=== PATIENT | female | born 1950 | race African-American/Black ===

== ENCOUNTER 2020-04-19 14:28 | Emergency (ER) | payer MEDICARE ==
--- NOTE | 2020-04-19 18:33 | ER Document Report ---
ED General - General Chief Complaint: Urinary Problem Stated Complaint: URINARY ISSUES Time Seen by Provider: 04/19/20 16:10 Primary Care Provider: JARAD MCCLENDON PA-C [Primary Care Provider] - Follow up as needed - HPI Notes: Patient is a 69-year-old female with a history of advanced dementia, recent stroke, who presents to the ED for evaluation after removing her Moore traumatically. The patient has severe dementia. She was sent home from [facility] yesterday with a Moore catheter in place. This morning the patient ripped out her own Moore catheter. She had nearly 2 L of urine in her Moore bag already. Patient's son is unsure as to whether or not she is urinated since then. Home health nurse recommended that she be seen in the ED for further evaluation. The patient can offer no meaningful history. Evidently the patient had another recent stroke, she has chronic kidney disease. She has been given medications, taking them as prescribed. - Related Data Allergies/Adverse Reactions: No Known Allergies Allergy (Unverified 04/19/20 14:37) Home Medications: Amiodarone, Eliquis, tamsulosin, furosemide, Lorazepam, albuterol, quetiapine Past Medical History - General Information source: Relative, Emergency Med Personnel - Social History Smoking Status: Never Smoker Family History: Reviewed & Not Pertinent - Past Medical History Cardiac Medical History: Reports: Hx Atrial Fibrillation Neurological Medical History: Reports: Hx Cerebrovascular Accident Psychiatric Medical History: Reports: Hx Dementia Review of Systems - Review of Systems -: Yes ROS unobtainable due to patient's medical condition - Advanced dementia Physical Exam - Vital signs Vitals: Pulse Resp BP Pulse Ox 88 18 137/79 H 94 04/19/20 14:41 04/19/20 14:41 04/19/20 14:41 04/19/20 14:41 - Notes Notes: This is a 69-year-old female who appears her stated age, in no acute distress. She is mildly anxious, repeats everything that this examiner says, but is reassured by her son's presence. Head is normocephalic and atraumatic, pupils are equal round, reactive to light. Oral mucosa is moist. Uvula is midline. H eart regular rate and rhythm, lungs are clear to auscultation bilaterally. Abdomen is obese, nontender, normoactive bowel sounds. Genital exam was performed with Monica Duke RN, present in the room. Patient has a moderate amount of edema at the urethral opening, scant amount of blood noted in her brief. Otherwise no significant trauma, urethral meatus does appear to be patent. Course - Re-evaluation Re-evalutation: 04/19/20 18:37 Patient presents to the emergency department for evaluation. She removed her own Moore catheter. The patient already had a Moore catheter in place for urinary retention yesterday. Bladder scan was performed and she had less than 100 cc of urine present. I discussed options with the patient's son. She Leighton had some retention prior that it was believed would require an indwelling Moore catheter. Now she has additional trauma. We discussed options, decision was made to advance a new Moore catheter. This was placed. Patient already has Moore care instructions, as do family members. Patient is to follow-up as previously recommended by [facility] physicians. Return to the ED with worsening or new concerning symptoms of any sort. - Vital Signs Vital signs: Temp Pulse Resp BP Pulse Ox 88 18 137/79 H 94 04/19/20 14:41 04/19/20 14:41 04/19/20 14:41 04/19/20 14:41 Discharge - Discharge Clinical Impression: Urinary retention Urethral trauma Qualifiers: Encounter type: initial encounter Qualified Code(s): S37.30XA - Unspecified injury of urethra, initial encounter Condition: Stable Disposition: HOME, SELF-CARE Instructions: Moore Catheter Care (OM) Additional Instructions: Moore catheter has been placed to prevent urinary retention. Please follow-up with urology and primary care as previously discussed from [facility]. Return to the emergency department with worsening or new concerning symptoms of any sort. Referrals: JARAD MCCLENDON PA-C [Primary Care Provider] - Follow up as needed
[2020-04-19 19:17] VITALS: BP 110/59
== END 2020-04-19 19:44 | disposition home or self-care (01) ==
LOC: ER 14:28
DX: S37.30XA Unspecified injury of urethra, initial encounter (principal); X58.XXXA Exposure to other specified factors, initial encounter; R33.9 Retention of urine, unspecified; F03.90 Unspecified dementia, unspecified severity, without behavioral disturbance, psychotic disturbance, mood disturbance, and anxiety; I48.91 Unspecified atrial fibrillation; Z79.899 Other long term (current) drug therapy; Z79.01 Long term (current) use of anticoagulants; Z86.73 Personal history of transient ischemic attack (TIA), and cerebral infarction without residual deficits
CPT/HCPCS: 51702; 99284